=== PATIENT | female | born 1955 ===

== ENCOUNTER 2016-12-17 06:07 | Day surgery (SDC) | payer OTHER ==
[2016-12-13 11:08] VITALS: BMI 34.2
[2016-12-17 06:47] VITALS: RESP 18
[2016-12-17] MEDS ORDERED: Iohexol 350mgl/ml 50 ML ONE (07:00)
[2016-12-17] MEDS ORDERED: Lidocaine 2% Inj (20ml) ONE (07:00)
[2016-12-17] MEDS ORDERED: Iohexol 350 MG/100 ML VIAL ONE (07:00)
[2016-12-17] MEDS ORDERED: Phenylephrine 10 mg/ml Inj ONE (07:03)
[2016-12-17] MEDS ORDERED: Nitroglycerin 50mg in D5W 0 MG/0 ML BOTTLE IV ONE (07:03)
[2016-12-17 07:04] LABS: INR 1.13 (0.93-1.08); PARTIAL THROMBOPLASTIN TIME 25.7 Seconds (23.7-30.8); PROTHROMBIN TIME 12.2 Seconds (9.9-11.8)
[2016-12-17 07:05] LABS: BLOOD UREA NITROGEN 17 mg/dL (7-21); GFR AFRICAN-AMERICAN > 60; GFR NON-AFRICAN AMERICAN > 60
[2016-12-17 07:06] LABS: BASO # 0.02 K/mm3 (0.0-2.0); BASO % 0.4 % (0.0-3.0); EOS # 0.3 (0.0-0.7); EOS % 4.9 % (1.5-5.0); GRAN # 3.15 (1.4-6.5); GRAN % 55.6 % (50.0-68.0); HEMOGLOBIN 11.5 gm/dL (12.0-16.0); LYMPH # 1.6 (1.2-3.4); MEAN CELL VOLUME 88.6 fL (80.0-105.0); MEAN CORPUSCULAR HEMOGLOBIN 28.5 pg (25.0-35.0); MEAN CORPUSCULAR HGB CONC 32.1 g/dl (31.0-37.0); MEAN PLATELET VOLUME 11.1 fl (7.0-11.0); MONO # 0.6 (0.1-0.6); MONO % 10.1 % (1.0-6.0); PLATELET COUNT 239 10^3/uL (120.0-450.0); RBC 4.04 10^6/uL (3.5-6.1); WHITE BLOOD COUNT 5.7 10^3/ul (4.5-11.0)
[2016-12-17] MEDS ORDERED: Midazolam 2 MG/2 ML VIAL ONE ×2 (07:18→07:40)
[2016-12-17] MEDS ORDERED: Sodium Chloride 0.9% 1,000 ML IV SCH (08:30)
[2016-12-17 09:05] VITALS: TEMP 97.7
[2016-12-17 09:59] VITALS: O2SAT 99
[2016-12-17 12:02] VITALS: PULSE 60
[2016-12-17 13:21] VITALS: BP 138/68
--- NOTE | 2016-12-17 18:01 | CARD ---
APPROVED REPORT EKG Measurement Heart [id number] 148P-2 [id number] <Conclusion> Normal sinus rhythm Normal ECG
--- NOTE | 2017-02-02 07:51 | CARDCATH ---
PROCEDURE DATE: 12/17/2016 HISTORY: The patient is a 60-year-old woman with history of hypertension, diabetes mellitus and hypercholesterolemia who is status post PTCA and stent x2 in [facility] as well as [facility] in the past who presents with recurrence of angina. A stress test was abnormal. Because of this, cardiac catheterization was recommended. PROCEDURE: Left heart catheterization with coronary with angiography and left ventriculogram. The right femoral artery was cannulated with a 6-Hungarian sheath. There were no complications. Findings on catheterization revealed a left ventricle that contracted normally. Estimated ejection fraction of 60%. Her coronary anatomy revealed a left main artery that was unremarkable. The LAD was a diffusely diseased vessel with a 40% stenoses in its takeoff from the diagonal vessels as well as a 50% stenoses in the very distal portion of the LAD. Diagonal vessel showed superior inferior branch which paralleled the LAD. In the proximal portion of the diagonal vessel, there was a patent stent noted. The circumflex artery consisted of moderate sized obtuse marginal branch which was free of significant disease. The AV groove branch was a small vessel and was free of significant disease. The RCA was selectively cannulized and found to be a dominant vessel. At the takeoff of the superior branch of the posterior lateral branch, there was a 50% stenosis noted. LV function was normal with an EF 60%. Angio-Seal was used to close the femoral artery site. The patient tolerated the procedure well. In summary, the procedure revealed a patent stent in the inferior branch of a moderate sized diagonal vessel, disease in the distal LAD as well as a 50% stenoses in the superior branch of the small posterior lateral branch. LV function is normal. Given these findings, the patient's treatment should be continued medical therapy with continued cardiac risk reduction program. Owen Tanner MD
== END 2016-12-17 15:15 | disposition home or self-care (01) ==
LOC: CATH 06:07
PROVIDERS: ATTEND Internal Medicine Cardiovascular Disease
DX: I25.118 Atherosclerotic heart disease of native coronary artery with other forms of angina pectoris (principal); I10 Essential (primary) hypertension; E78.00 Pure hypercholesterolemia, unspecified; E11.9 Type 2 diabetes mellitus without complications; Z95.5 Presence of coronary angioplasty implant and graft
CPT/HCPCS: 36415; 80048; 85025; 85610; 85730; 86850; 86900; 93005; 93458; 99152; C1769; C2629; J1644; J2250; J3010; J7040 ×2; Q9967